=== PATIENT | female | born 1975 ===

== ENCOUNTER 2022-02-23 18:36 | Emergency (ER) | payer SELFPAY ==
[2022-02-23 18:02] LABS: AMPHETAMINES,URINE NEGATIVE (NEGATIVE); BARBITURATES,URINE NEGATIVE (NEGATIVE); BENZODIAZEPINE,URINE NEGATIVE (NEGATIVE); MDMA (ECSTASY), URINE NEGATIVE (NEGATIVE); METHADONE,URINE NEGATIVE (NEGATIVE); METHAMPHETAMINES,URINE NEGATIVE (NEGATIVE); OPIATES,URINE NEGATIVE (NEGATIVE); OXYCODONE,URINE NEGATIVE (NEGATIVE); PHENCYCLIDINE,URINE NEGATIVE (NEGATIVE); TCA,URINE NEGATIVE (NEGATIVE)
[2022-02-23 18:13] LABS: ANION GAP 16.7 mEq/L (7-13); CHLORIDE,CL 104 mmol/L (98-107); SODIUM,NA 142 mmol/L (136-145)
[~2022-02-23 18:36] MED LIST: MVI, Adult with Vitamin K 10 ML, Thiamine 100 MG, Folic Acid 1 MG in Lactated Ringers 1... IV ONE; Pantoprazole 40 MG Vial IVPUSH ONE; Potassium Chloride 10 MEQ Tab.ER PO ONE; Potassium Chloride 20 MEQ in Premix Bag 1 BAG IV ONE
== END 2022-02-23 21:09 | disposition home or self-care (01) ==
LOC: DL.ED 18:36
DX: F10.129 Alcohol abuse with intoxication, unspecified (principal); E87.6 Hypokalemia; D53.9 Nutritional anemia, unspecified; Y90.8 Blood alcohol level of 240 mg/100 ml or more
CPT/HCPCS: 36415; 80053; 80305; 80307; 81003; 81025; 85025; 96365; 96366; 96368; 96375; 99283; A9270; C9113; J3411; J3480; J7120; J3490